=== PATIENT | female | born 1960 | race Caucasian/White ===

== ENCOUNTER 2020-10-02 09:50 | Outpatient (CLI) | payer OTHER, SELFPAY | END 2020-10-02 23:59 | disposition home or self-care (01) | LOC: MLB 09:50 → EDSTATUS 10-10 11:55 | PROVIDERS: ATTEND Internal Medicine Gastroenterology | DX: Z01.812 Encounter for preprocedural laboratory examination (principal); Z20.822 Contact with and (suspected) exposure to COVID-19 | CPT/HCPCS: U0003 ==

== ENCOUNTER 2021-06-19 06:01 | Day surgery (SDC) | payer OTHER, SELFPAY ==
[~2021-06-19] VITALS: Ht 160 cm; Wt 72.6 kg
[2021-06-19] MEDS ORDERED: MIDAZOLAM 5 MG/5 ML VIAL ONE (07:49)
[2021-06-19] MEDS ORDERED: fentaNYL citrate 0.05 MG/ML VIAL ONE (07:49)
[2021-06-19] MEDS ORDERED: MIDAZOLAM 2 MG/2 ML VIAL IVP ONE (08:40)
== END 2021-06-19 08:54 | disposition home or self-care (01) ==
LOC: MDS 06:01 → MMU 06:02 → MDS 08:54
PROVIDERS: ATTEND Internal Medicine Gastroenterology
DX: R10.13 Epigastric pain (principal); K29.70 Gastritis, unspecified, without bleeding; M19.90 Unspecified osteoarthritis, unspecified site; F41.9 Anxiety disorder, unspecified; F32.9 Major depressive disorder, single episode, unspecified; Z90.710 Acquired absence of both cervix and uterus; Z79.899 Other long term (current) drug therapy; Z20.822 Contact with and (suspected) exposure to COVID-19
CPT/HCPCS: 36415; 43239; 86677; 87426; J2250; J3010